=== PATIENT | male | born 1995 | race American Indian/Alaskan Native ===

== ENCOUNTER 2024-09-16 23:35 | Emergency (ER) | payer MEDICAID ==
[~2024-09-16] VITALS: Ht 175.3 cm; Wt 92.0 kg
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
[2024-09-17] MEDS: ketorolac trometh 15mg/ml vial 15 MG/ML ML IV ONE (00:29)
--- NOTE | 2024-09-17 00:49 | RADIOLOGY REPORT ---
EXAM: CT CT LUMBAR SPINE INDICATION: acute pain, numbness to lower extremities bilaterally COMPARISON: None TECHNIQUE: Multiple axial CT images of the lumbar spine were obtained using bone algorithm. Axial an d coronal reformatting was done. Bone and soft tissue windows were reviewed. Radiation Dose Information: CT Dose: CTDI volume is 24.8 mGy. Dose-length product is 712. 11 mGy*cm FINDINGS: No CT evidence of acute fracture or traumatic malalignment. The visualized paraspinal soft tissues ar e grossly unremarkable. The disc spaces are relatively preserved. There are mild degenerative change of the spine, with mild disc space narrowing and endplate degenerative changes. There is no CT evidence of significant spinal canal or neural foraminal stenosis. At L5-S1, a disc protrusion effaces the thecal sac and mildly narrows the left lateral recess. IMPRESSION: 1. No acute displaced fracture. 2. Small disc protrusion at L5-S1. If clinically indicated, MRI may be beneficial in further evaluat ion. Radiation optimization: All CT scans at this facility use at least one of these dose optimization alon hniques: automated exposure control mA and/or kV adjustment per patient size (includes targeted exam s where dose is matched to clinical indication) or iterative reconstruction.
[2024-09-17 01:54] LABS: LEUKOCYTE ESTERASE ,URINE NEGATIVE (Neg); NITRITES, URINE NEGATIVE (Neg); OCCULT BLOOD,URINE NEGATIVE (Neg)
[2024-09-17 01:56] LABS: UA COLLECTION TYPE URINAL
--- NOTE | 2024-09-17 09:02 | RADIOLOGY REPORT ---
MR MRI LUMBAR SPINE INDICATION: cauda equina EXAM DATE: 09/17/2024 07:53 AM COMPARISON: CT CT LUMBAR SPINE on DOS: 09/17/24 PROCEDURE: Using a 1.5 Keshia scanner, multisequence multiplanar imaging of the lumbar spine was obtai jayde. FINDINGS: There are five lumbar vertebral segments. The lumbar spine shows anatomic alignment with pr eservation of vertebral body heights. The marrow signal is homogeneous. The intervertebral discs appe ar narrowed in height and signal at L5-S1. The distal spinal cord is normal in signal and morphology and the conus medullaris terminates at L2. The paraspinal soft tissues are normal. On axial images: At L1-2, the posterior disc margin, thecal sac, neural foramina, and facet joints appear normal. At L2-3, the posterior disc margin, thecal sac, neural foramina, and facet joints appear normal. At L3-4, the posterior disc margin, thecal sac, neural foramina, and facet joints appear normal. At L4-5, the posterior disc margin, thecal sac, neural foramina, and facet joints appear normal. At L5-S1, there is a small posterior disc bulge centrally, thecal sac is normal, mild bilateral neura l foramina narrowing, and facet joints appear normal. IMPRESSION: Mild degenerative disc disease at L5-S1 with mild bilateral neural foramina narrowing. Otherwise, normal MRI findings of the lumbar spine.
[2024-09-17 10:19] VITALS: BP 118/79; PULSE 79; RESP 18; TEMP 98.8; O2SAT 98
== END 2024-09-17 10:21 | disposition home or self-care (01) ==
LOC: ER 23:37
DX: G89.29 Other chronic pain (principal); M54.9 Dorsalgia, unspecified; R20.0 Anesthesia of skin
CPT/HCPCS: 72131; 72148; 81003; 96374; 99285; J1885